=== PATIENT | female | born 2000 | race Two or more races ===

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

== ENCOUNTER 2020-01-22 15:48 | Emergency (ER) | payer MEDICAID ==
[~2020-01-22] VITALS: Ht 149.9 cm; Wt 51.3 kg
[2020-01-22] MEDS ORDERED: HYDROcodone-ACET 5/325MG TAB PO ONE (17:30)
[2020-01-22 17:34] VITALS: BP 128/92
== END 2020-01-22 17:55 | disposition home or self-care (01) ==
LOC: ER 15:48
DX: S52.502A Unspecified fracture of the lower end of left radius, initial encounter for closed fracture (principal); V86.56XA Driver of dirt bike or motor/cross bike injured in nontraffic accident, initial encounter; Y93.89 Activity, other specified; Y92.89 Other specified places as the place of occurrence of the external cause; Y99.8 Other external cause status
CPT/HCPCS: 29125; 73100